=== PATIENT | female | born 1990 | race Caucasian/White ===

== ENCOUNTER 2016-07-22 20:01 | Emergency (ER) | payer OTHER ==
[~2016-07-22] VITALS: Ht 157.5 cm; Wt 81.8 kg
[2016-07-22 20:04] VITALS: Ht 157.5 cm; Wt 81.8 kg
[2016-07-22] MEDS ORDERED: predniSONE 20 MG TAB PO ONE (20:30)
[2016-07-22] MEDS ORDERED: morphine 10 MG INJ IM ONE (20:30)
--- NOTE | 2016-07-22 20:34 | ERA ---
ER Documentation Chief Complaint Date/Time DATE: 07/22/16 TIME: 20:31 Chief Complaint pt c/o anxiety, left elbow pain, low back pain (from RA) HPI 26-year-old female presenting with her boyfriend with a chief complaint of rheumatoid arthritis flareup. Patient's history includes rheumatoid arthritis and general anxiety disorder. Patient's rheumatoid arthritis was diagnosed one year ago and is currently being followed by Dr. Orellana. Patient is taking Toradol and Norwell for relief: Cures report is consistent with patient's history. Patient is no longer taking rheumatoid arthritis medications due to concomitant H pylori by the direction of her surgical supervisor. Patient's flareup started earlier this morning. Patient is taking Xanax for anxiety. Patient's flareup consists of anxiety and back pain affecting ambulation. Denies loss of bowel or bladder. Denies consistent pain or relieving/aggravating factors. There are no other social manifestations and patient has no other complaints at this time. ROS All systems reviewed and are negative except as per history of present illness. Allergies Allergies: Coded Allergies: lactose (Verified Allergy, Unknown, 07/22/16) PMhx/Soc Hx Miscellaneous Medical Probl: Yes (rhumatoid arthritis) Hx Alcohol Use: No Hx Substance Use: Yes (marijuana) Hx Tobacco Use: No Smoking Status: Never smoker Physical Exam Vitals Vital Signs Date Time Temp Pulse Resp B/P Pulse Ox O2 Delivery O2 Flow Rate FiO2 07/22/16 20:04 99.0 88 18 148/102 98 Physical Exam Const: Anxious appearing obese 26-year-old female Head: Atraumatic Eyes: Normal Conjunctiva ENT: Normal External Ears, Nose and Mouth. Neck: Full range of motion..~ No meningismus. Resp: Clear to auscultation bilaterally Cardio: Regular rate and rhythm, no murmurs Abd: Soft, non tender, non distended. Normal bowel sounds Skin: No petechiae or rashes Back: No midline or flank tenderness Ext: No cyanosis, or edema. Lower extremities have limited range of motion secondary to pain. Neur: Awake and alert. Patient is neurovascularly intact bilaterally. DTRs of patellar 2+ bilaterally. Psych: Normal Mood and Affect Results 24 hrs Current Medications Medications (Trade) Dose Ordered Sig/Harpal Route PRN Reason Start Time Stop Time Status Last Admin Dose Admin Prednisone (Prednisone) 60 mg ONCE ONCE PO 07/22/16 20:30 07/22/16 20:31 DC 07/22/16 20:37 Morphine Sulfate (morphine) 4 mg ONCE ONCE IM 07/22/16 20:30 07/22/16 20:31 DC 07/22/16 20:37 Procedures/MDM Obese 26-year-old female with a chief complaint of rheumatoid arthritis flare. Once an injection for flare and pain. She cannot take p.o. meds secondary to claimed H. pylori infection. On initial presentation patient was then wheelchair. Patient claims to have difficulty walking secondary to slipped L4- L5. Patient denies any neuro symptoms and physical exam was grossly unremarkable. At this time a very low suspicion for any impingement of the spinal cord this patient is neurovascularly intact bilaterally DTRs are 2+ bilaterally. Similar symptoms have happened before: With history there is no need to obtain imaging at this time. We will go ahead and administer for milligrams IM of morphine and 60 mg prednisone after urine test is negative. Patient's symptoms have improved but not subsided. I have told the patient that she has to follow-up with her surgical supervisor for further management. I spoke with my attending Dr. Pollard and he agrees with the assessment and plan. Vital signs are stable. Patient will be discharged at this time with discharge instructions and return precautions. Patient has also been advised to continue therapy that has been given a surgical supervisor. Patient should also follow-up with surgical supervisor in the next 1-3 days. Departure Diagnosis: Primary Impression: SHANI (generalized anxiety disorder) Additional Impressions: Rheumatoid arthritis Qualified Code: M06.9 - Rheumatoid arthritis involving vertebra, unspecified rheumatoid factor presence Rheumatoid arthritis flare Condition: Stable Additional Instructions: Follow up with your PCP/surgical supervisor the next 1-3 days. Return the the emergency department immediately if symptoms worsen or change. If you have any questions regarding medications, ask your pharmacist or us before you leave. If any adverse reactions occur while taking your medications, discontinue the treatment and return to the emergency department immediately. Take your medications as directed, and complete the entire course of treatment. SYEDA RAMOS PA-C Jul 22, 2016 20:34
[2016-07-22 22:26] VITALS: BP 140/84; PULSE 69; RESP 16
== END 2016-07-22 22:26 | disposition home or self-care (01) ==
LOC: FTE 20:01
DX: F41.1 Generalized anxiety disorder (principal); M06.9 Rheumatoid arthritis, unspecified
CPT/HCPCS: 96372; 99284; J2270; J7512